=== PATIENT | female | born 1965 | race African-American/Black ===

== ENCOUNTER 2018-01-13 13:35 | Emergency (ER) | payer OTHER ==
[2018-01-13 13:41] VITALS: BP 114/65; PULSE 81; TEMP 97.7; BMI 36.9
--- NOTE | 2018-01-13 13:44 | PDOC ---
History of Present Illness - General Chief Complaint: Ear Problem Stated Complaint: Ear Problem Time Seen by Provider: 01/13/18 13:42 History Source: Patient Exam Limitations: No Limitations - History of Present Illness Initial Comments: 01/13/18 14:07 Here with complaints of right ear pain 2 days. has had frequent ear infections as child but hearing is intact. States onset of this cold symptoms 2- 3 days ago but is progressively worsened where she has significant crackling and congestion to her right ear. Denies drainage from ear, denies fevers and is taken no medication for relief Timing/Duration: 24 hours Severity: mild, moderate Associated Symptoms: reports: headaches, malaise Past History - Travel Traveled outside of the country in the last 30 days: No Close contact w/someone who was outside of country & ill: No - Past Medical History Allergies/Adverse Reactions: Allergies Allergy/AdvReac Type Severity Reaction Status Date / Time No Known Allergies Allergy Verified 01/13/18 13:41 Home Medications: Ambulatory Orders Ibuprofen [Motrin -] 400 mg PO QID PRN #28 tablet 01/13/18 Asthma: Yes COPD: No HTN: Yes Hypercholesterolemia: Yes - Suicide/Smoking/Psychosocial Hx Smoking History: Unknown if ever smoked Hx Alcohol Use: No Drug/Substance Use Hx: No Review of Systems - Review of Systems Able to Perform ROS?: Yes Is the patient limited Mohawk proficient: Yes Constitutional: Yes: Symptoms Reported, See HPI, Malaise. No: Fever HEENTM: Yes: Symptoms Reported, See HPI, Ear Pain Integumentary: Yes: See HPI. No: Symptoms Reported, Rash Neurological: Yes: Symptoms reported, See HPI, Headache All Other Systems: Reviewed and Negative *Physical Exam - Vital Signs Last Vital Signs Temp Pulse Resp BP Pulse Ox 97.7 F 81 20 114/65 99 01/13/18 13:39 01/13/18 13:39 01/13/18 13:39 01/13/18 13:39 01/13/18 13:39 - Physical Exam General Appearance: Yes: Nourished, Appropriately Dressed, Apparent Distress, Mild Distress HEENT: positive: [place], Pharynx Normal, Nasal Congestion, Rhinorrhea, Sinus Tenderness. negative: Normal ENT Inspection, TMs Normal (ingestion bilaterally very poor landmarks to the right side due to scarring. No erythema or bulging noted to either TM. No external otitis noted) Neck: positive: Tender, Supple. 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 No evidence of bacterial infection therefore will treat conservatively *DC/Admit/Observation/Transfer Diagnosis at time of Disposition: Common cold - Discharge Dispostion Disposition: HOME Condition at time of disposition: Stable Decision to Admit order: No - Referrals Referrals: Mike Romo MD [Staff Physician] - - Patient Instructions Printed Discharge Instructions: DI for Common Cold Additional Instructions: Rest, drink lots of fluids: Teas, water, soups, Pedialyte Saltwater gargles Steamy showers/seem to face break up mucus Avoid contact with others until fevers and cough resolved Lots of handwashing and good hygiene Continue [id number] medications for symptomatic relief Tylenol or Motrin for fever and pain Followup with private physician in one to 2 days as needed Return to emergency department for worsened symptoms, fevers, dehydration - Post Discharge Activity Forms/Work/School Notes: Back to Work
== END 2018-01-13 14:08 | disposition home or self-care (01) ==
LOC: JERFT 13:35
DX: J00 Acute nasopharyngitis [common cold] (principal); I10 Essential (primary) hypertension; E78.00 Pure hypercholesterolemia, unspecified; J45.909 Unspecified asthma, uncomplicated
CPT/HCPCS: 99281-25

== ENCOUNTER 2021-10-22 04:37 | Day surgery (SDC) | payer OTHER ==
[2021-10-21 11:09] VITALS: BMI 45.0
[2021-10-22] MEDS ORDERED: BUPIVACAINE HCL/PF 0.75% 10 ML VIAL ONE (07:44)
[2021-10-22] MEDS ORDERED: LIDOCAINE HCL/PF 1% SDV 5ML VIAL ONE (07:45)
[2021-10-22] MEDS ORDERED: LIDOCAINE 1% P/F 10 MG/ML VIAL INF ONE (11:47)
[2021-10-22] MEDS ORDERED: BUPIVACAINE HCL/PF 0.75% 10 ML VIAL NR ONE (11:48)
[2021-10-22 12:33] VITALS: BP 128/75; PULSE 73; TEMP 97.8
== END 2021-10-22 12:46 | disposition home or self-care (01) ==
LOC: EDSEX → JASU-SURG 04:37
PROVIDERS: ATTEND Pain Medicine Pain Medicine
PROC: 3E0T33Z Introduction of Anti-inflammatory into Peripheral Nerves and Plexi, Percutaneous Approach (ICD-10-PCS; 2021-10-22)
PROC: BR16ZZZ Fluoroscopy of Lumbar Facet Joint(s) (ICD-10-PCS; 2021-10-22)
PROC: 3E0T3BZ Introduction of Anesthetic Agent into Peripheral Nerves and Plexi, Percutaneous Approach (ICD-10-PCS; principal; 2021-10-22 10:45)
DX: M47.816 Spondylosis without myelopathy or radiculopathy, lumbar region (principal)
CPT/HCPCS: 76000-TC-FY

== ENCOUNTER 2021-11-19 04:10 | Day surgery (SDC) | payer OTHER ==
[2021-11-17 12:13] VITALS: BMI 43.5
[2021-11-19] MEDS ORDERED: LIDOCAINE HCL/PF 1% SDV 5ML VIAL ONE (08:05)
[2021-11-19] MEDS ORDERED: BUPIVACAINE HCL/PF 0.75% 10 ML VIAL ONE (08:05)
[2021-11-19] MEDS ORDERED: LIDOCAINE HCL 1% PRESERVATIVE FREE - 30ML VIAL IJ ONE (14:05)
[2021-11-19] MEDS ORDERED: BUPIVACAINE HCL/PF 0.75% 10 ML VIAL NR ONE (14:05)
[2021-11-19 14:29] VITALS: PULSE 74; RESP 20; TEMP 98.2
[2021-11-19 17:10] VITALS: BP 120/80
== END 2021-11-19 15:40 | disposition home or self-care (01) ==
LOC: JASU-SURG 04:10
PROVIDERS: ATTEND Pain Medicine Pain Medicine
PROC: 3E0T33Z Introduction of Anti-inflammatory into Peripheral Nerves and Plexi, Percutaneous Approach (ICD-10-PCS; 2021-11-19)
PROC: 3E0T3BZ Introduction of Anesthetic Agent into Peripheral Nerves and Plexi, Percutaneous Approach (ICD-10-PCS; principal; 2021-11-19 12:15)
DX: M47.816 Spondylosis without myelopathy or radiculopathy, lumbar region (principal)
CPT/HCPCS: 76000-TC-FY

== ENCOUNTER 2021-12-17 04:08 | Day surgery (SDC) | payer OTHER ==
[2021-12-15 14:47] VITALS: BMI 43.5
[2021-12-17] MEDS ORDERED: DEXAMETHASONE SOD PHOSPHATE 10 MG/1 ML VIAL IVPUSH ONE (09:40)
[2021-12-17] MEDS ORDERED: BUPIVACAINE 0.75% IN DEXTROSE/PF 2ML AMPULE NR ONE (09:40)
[2021-12-17] MEDS ORDERED: BUPIVACAINE HCL/PF 0.75% 10 ML VIAL PNB ONE (09:40)
[2021-12-17] MEDS ORDERED: LIDOCAINE HCL 1% PRESERVATIVE FREE - 30ML VIAL IJ ONE (09:40)
[2021-12-17] MEDS ORDERED: LIDOCAINE HCL/PF 2% SDV 5ML VIAL INF ONE (09:40)
[2021-12-17 10:36] VITALS: RESP 20
[2021-12-17 11:09] VITALS: BP 147/80; PULSE 78; TEMP 98.8
== END 2021-12-17 11:00 | disposition home or self-care (01) ==
LOC: JASU-SURG 04:08
PROVIDERS: ATTEND Pain Medicine Pain Medicine
PROC: 3E0T3TZ Introduction of Destructive Agent into Peripheral Nerves and Plexi, Percutaneous Approach (ICD-10-PCS; principal; 2021-12-17 08:45)
PROC: BR16YZZ Fluoroscopy of Lumbar Facet Joint(s) using Other Contrast (ICD-10-PCS; 2021-12-17 08:45)
DX: M47.816 Spondylosis without myelopathy or radiculopathy, lumbar region (principal)
CPT/HCPCS: 76000-TC-FY; J1100